=== PATIENT | female | born 1990 | race Caucasian/White ===

== ENCOUNTER 2024-06-11 16:05 | Emergency (ER) | payer OTHER, SELFPAY ==
--- NOTE | ~2024-06-11 | XR_ITS ---
EXAMINATION: XR chest 2V DATE: 06/11/2024 17:19 INDICATION: Shortness of breath. Chest tightness. TECHNIQUE: Frontal and lateral views of the chest were obtained. COMPARISON: Chest 2 views 07/12/2016 FINDINGS: There is no pneumonia, pleural effusion, or pneumothorax. The heart size is normal. IMPRESSION: 1. No acute cardiopulmonary disease. Reviewed, dictated and finalized at location A. AL PATIENT COORDINATOR
[2024-06-11 16:26] VITALS: BP 121/92; PULSE 63; RESP 15; TEMP 36.6; O2SAT 100
--- NOTE | 2024-06-11 16:34 | ED_ITS ---
HPI - URI/Sore Throat General Chief Complaint: Upper Respiratory Infection Stated Complaint: SOB Time Seen by Provider: 06/11/24 16:40 Source: patient Mode of arrival: ambulatory Limitations: no limitations History of Present Illness HPI Narrative: Summer is a 34-year-old female patient presenting to the clinic today with complaints shortness of breath, chest tightness, dizziness, chronic nausea, and reporting black stools. Shortness of breath, chest tightness and dizziness started over the past 2 days. Has had a 30-40 lb weight loss since January gynoologist is aware. Patient has been trying to lose weight. Has been taking Pepto for her nausea. She reports she seen Cardiology 3 months ago for hypertension and had a complete cardiac workup done at the workup was negative at that time. History of IBS. Patient is very anxious in the clinic today. Was supposed to see her PCP sometime over the past month however they have canceled on her twice. She has a follow-up appointment with her PCP on Friday of next week. She denies any fever, cough, chills, body aches, URI symptoms, sore throat, or abdominal pain. Related Data Home Medications Medication Instructions Recorded Confirmed acyclovir 200 mg capsule See Rx Instructions .Route .COMPLEX 08/26/19 08/26/19 amitriptyline 25 mg tablet 25 mg PO BID 08/26/19 08/26/19 etonogestrel 68 mg subdermal 1 implant subdermal ONCE 08/26/19 08/26/19 implant (Nexplanon) metoprolol tartrate 100 mg tablet 100 mg PO Q12H 08/26/19 08/26/19 buspirone 10 mg tablet mg 06/11/24 Allergies Allergy/AdvReac Type Severity Reaction Status Date / Time aripiprazole Allergy Unknown Unknown Verified 06/11/24 16:44 sertraline Allergy Unknown Unknown Verified 06/11/24 16:44 Review of Systems Review of Systems: Pertinent positives per HPI. Patient denies any fever, chills, rash, headache, visual changes, dizziness, cough, chest pain, palpitations, nausea, vomiting, diarrhea, constipation, abdominal pain, or any urinary issues. [facility] Family History Family History Father Hypertension Family history of lymphoma Mother Hypertension Sibling Patient's brother is in good health Social History Social History Smoking status: Current every day smoker Second hand tobacco smoke exposure: Yes Smoking end date: 08/04/15 Alcohol intake: current Substance use type: marijuana Comments At the time of my signature, I reviewed and agree with the nursing past medical, surgical, social, and family history. There is no relevant family history pertinent to the patient complaint. Exam Narrative: General: Well-developed, well nourished, in no apparent distress Head: Normocephalic, atraumatic Eyes: Pupils equally round and reactive to light bilaterally, EOM intact, sclera and conjunctive clear, no discharge, lids normal Ears: TMs intact and clear, ear canals clear, no drainage, grossly hearing normal. Nose: Nares patent, no discharge, no inflammation, no sinus tenderness. Mouth: Oral pharynx without lesions or masses, good dentition, MMM. Neck: Supple, trachea midline, no enlargement of anterior or posterior cervical nodes, no thyroid masses or goiter palpable. Cardio: Regular rate and rhythm, s1 and s2 normal, no murmur appreciated. Resp: Clear to auscultation bilaterally, no rhonchi, rales, wheezing or rubs Course Course Emergency Course: Portions of this record may have been created with voice recognition software. Level of Care: Express Care Visit Vital Signs Vital signs: Vital Signs Temperature 36.6 C 06/11/24 16:26 Pulse Rate 63 06/11/24 16:26 Respiratory Rate 15 06/11/24 16:26 Blood Pressure 121/92 H 06/11/24 16:26 Pulse Oximetry 100 06/11/24 16:26 Oxygen Delivery Room Air 06/11/24 16:26 Temperature 36.6 C 06/11/24 16:26 Pulse Rate 63 06/11/24 16:26 Respiratory Rate 15 06/11/24 16:26 Blood Pressure 121/92 H 06/11/24 16:26 Pulse Oximetry 100 06/11/24 16:26 Oxygen Delivery Room Air 06/11/24 16:26 Vital signs reviewed MDM - URI/Sore Throat MDM Narrative Medical decision making narrative: At the time of visit patient is resting on the exam table. Patient is anxious. Is pink warm and dry and is hemodynamically stable EKG: EKG shows sinus bradycardia with a short MO interval. Heart rate is 55 beats per minute. No ST elevation, depression, or T-wave inversion noted Labs: COVID and influenza testing was negative in the clinic today Orthostatic blood pressures: Within normal limits Diagnostics: Chest x-ray is negative for any acute cardiopulmonary process. Plan: Wells criteria 0.0 points for 1.3% PE risk. I suspect a lot of patient's symptoms may be anxiety driven. EKG, chest x-ray, and orthostatic blood pressures are reassuring in the clinic today. Patient has been taking Pepto which would give a reason for her to have darker stools. History of IBS with chronic nausea. Has weight loss but has been trying to lose weight. Dizziness occurs when her anxiety worsens. Lung sounds are clear in the clinic today. Supportive measures were discussed with the patient and they voiced understanding discharge instructions and agrees to treatment plan. Return precautions reviewed Well Criteria 0.0?points Low risk group: 1.3% chance of PE in an ED population. Another study assigned scores <=4 as ?PE Unlikely? and had a 3% incidence of PE. Differential Diagnosis Differential diagnosis: Likely upper respiratory infection, otitis media, sinusitis, viral infection, bronchitis, influenza, pharyngitis (Anxiety, PE, hyperthyroid, pneumonia, atypical chest pain, STEMI, non STEMI) and other (COVID) Imaging Data Radiologist's impression: ITS Impressions Chest X-Ray 06/11/24 17:24 IMPRESSION: 1. No acute cardiopulmonary disease. ECG Data EKG #1: Attestation: I personally reviewed and interpreted this ECG as follows: ECG completion date: 06/11/24 ECG completion time: 17:11 Prior ECG tracings: not available for review Interpretation: EKG shows sinus bradycardia with heart rate of 55 beats per minute without ST elevation, depression, or T-wave inversion. MO interval is 117 milliseconds, QRS durations 80 milliseconds, QT-QTC is 428-418 milliseconds, PRT axis 7 -2 -1 Discharge Plan Discharge Clinical Impression: Anxiety, Atypical chest pain, Shortness of breath Patient Disposition: Home, Self-Care Condition: Stable Instructions: Antibiotic Form, Chest Pain (ED), Anxiety (ED), Shortness of Breath (ED) Additional Instructions: EKG is reassuring in the clinic today Chest x-rays negative for any acute cardiopulmonary process Orthostatic blood pressures are within normal limits COVID and influenza testing was negative in the clinic today. Take your BuSpar as directed Practice relaxation techniques May take [id number] omeprazole or Pepcid for GERD symptoms Recommend follow-up with your primary care doctor on Friday as scheduled If symptoms worsen go to the emergency room immediately for further evaluation Prescriptions: No Action metoprolol tartrate 100 mg Tablet 100 mg PO Q12H acyclovir 200 mg Capsule See Rx Instructions .ROUTE .COMPLEX Rx Instructions: 200 mg orally take one tablet five times a day for five days amitriptyline 25 mg Tablet 25 mg PO BID Nexplanon 68 mg Implant 1 implant SUBDERMAL ONCE buspirone 10 mg tablet Follow-up/Referrals: Brian,JOSE Salazar [Primary Care Provider] - Time of Disposition: 17:42 Quality NIHSS Nursing Documentation ED NIHSS nursing documentation: reviewed/agree
[2024-06-11 16:41] LABS: EDCOVIDSCREEN Negative (Negative); EDINFLUASCREEN Negative (Negative); EDINFLUBSCREEN Negative (Negative)
--- NOTE | 2024-06-11 17:03 | ECG_ITS ---
Test Date: 2024-06-11 17:11:14 Measurements Intervals Lowpoint Rate: 55 P: 7 NH: 117 QRS: -2 QRSD: 80 T: -1 QT: 428 QTc: 412 Interpretive Statements SINUS BRADYCARDIA WITH SHORT NH INTERVAL LOW QRS VOLTAGE IN PRECORDIAL LEADS BORDERLINE T WAVE ABNORMALITY- ANT/INF LEADS BASELINE ARTIFACT- I, II, AVR, AVL, AVF, V4-V6 BORDERLINE ECG No previous ECG available for comparison Electronically Signed On 06-12-2024 11:45:22 SIZING MACHINE OPERATOR by Anil Buckley D.O.
[2024-06-11 17:04] VITALS: BP 118/80; PULSE 56
[2024-06-11 17:06] VITALS: BP 124/84; PULSE 63
[2024-06-11 17:08] VITALS: BP 121/80; PULSE 55
== END 2024-06-11 17:48 | disposition home or self-care (01) ==
PROVIDERS: Emergency Provider Nurse Practitioner Family; PCP Nurse Practitioner
DX: F41.9 Anxiety disorder, unspecified (principal); R07.89 Other chest pain; R06.02 Shortness of breath; Z20.822 Contact with and (suspected) exposure to COVID-19; Z87.891 Personal history of nicotine dependence
CPT/HCPCS: 71046; 87426; 87804; 93005; 99213; G0463

== ENCOUNTER 2025-06-06 15:53 | Emergency (ER) | payer OTHER, SELFPAY ==
--- OUTSIDE RECORDS SUMMARY | 2006-11-24 02:43 | XMS_ITS | Continuity of Care Document ---
Author Organization [facility] Address [address] [place] [address] [address] [place] [address] Phone Care Team Providers Care Logistics Vice President Name Role Phone Singh OD, Georgi Unavailable Unavailable Procedures Procedure Date CL Replacement - Vistakon Disp W/BW Soft Tax - Medical Advance Directives Directive Yes / No Effective Date File Name No Information Encounters Encounter Description Practice Location Reason(s) For Visit Diagnoses Date Provider Providers Copied on Encounter [facility], [address] [place] [address] [address], [place], [place], [id number], tel:[phone] [facility] No Information 3-200 7 Singh OD Georgi. [address] , [address], [place], [address], [place]. tel:[phone] Family History Family Member Type Diagnosis Age At Onset No Information Payers Payer name Insurance type Covered democrat ID Authoriza tion(s) No Information Social History Type Description Quantity Date Captured Comments Sex Female Smoking Status No Information Chief Complaint And Reason For Visit No Information Reason For Referral Reason For Referral No Information History Of Present Illness Encounter Date Complaint History Of Prese nt Illness No Information Functional Status Date Functional Assessmen t No Information Instructions Date Instruction Additional Infor mation No Information Assessments Type Assessment Date No Information Patient Care Teams Name Effective Dates (start - stop) Status Members No Information
--- OUTSIDE RECORDS SUMMARY | 2006-11-24 02:43 | XMS_ITS | Continuity of Care Document ---
Author Organization [facility] Address [address] [place] [address] [address] [place] [address] Phone Care Team Providers Care Physicist Cryogenics Name Role Phone Singh OD, Georgi Unavailable Unavailable Procedures Procedure Date CL Replacement - Vistakon Disp W/BW Soft Tax - Medical Advance Directives Directive Yes / No Effective Date File Name No Information Encounters Encounter Description Practice Location Reason(s) For Visit Diagnoses Date Provider Providers Copied on Encounter Formerly [facility], [address] [place] [address] [address], [place], [place], [id number], tel:[phone] [facility] No Information 3-200 7 Sinhg OD Georgi. [address] , [address], [place], [address], [place]. tel:[phone] Family History Family Member Type Diagnosis Age At Onset No Information Payers Payer name Insurance type Covered libertarian ID Authoriza tion(s) No Information Social History [...]
--- OUTSIDE RECORDS SUMMARY | 2025-06-06 16:01 | XMS_ITS | Encounter Summary ---
Author Organization [facility] Address [address] [place] [address] Care Team Providers Care R Programmer Name Role Phone Kaila Hopper Primary Care Provider [phone] Reason for Visit * Reason Onset Date Comments MEDICATION REFILL 06/18/2022 Encounter Details Date Type Department Care Team (Late st Contact Info) Description 06/18/[address], [place] [phone] Kaila Hopper APRN-CNP [address] [place] [phone] MEDICATION REFILL Social History Tobacco Use Types Packs/Day Years Used Date Smoking Tobacco: Light Smoker Cigarettes Smokeless Tobacco: Never Comments:trying to stop Alcohol Use Standard Drinks/Week Comments Yes 0 (1 standard drink = 0.6 oz pur e alcohol) rare PHQ-2 Answer Date Recorded PHQ2 TOTAL SCORE 0 05/01/2021 Comments No Sex and Gender Information Value Date Recorded Sex Assigned at Not on file Legal Sex Female 1:45 PM CDT Gender Identity Not on file Sexual Orientation Not on file documented as of this encounter Plan of Treatment Not on file documented as of this encounter Visit Diagnoses Diagnosis Medication refill Issue of repeat prescriptions Insomnia, unspecified type Dry mouth Disturbance of salivary secretion Anxiety Anxiety state, unspecified documented in this encounter Care Teams R Programmer Relationship Specialty Start Date End Date Kaila Hopper APRN-CNP PCP - General 05/29/18 documented as of this encounter
--- OUTSIDE RECORDS SUMMARY | 2025-06-06 16:01 | XMS_ITS | Encounter Summary ---
Author Organization [facility] Address [address] [place] [address] Care Team Providers Care Weight Loss Consultant Name Role Phone Kaila Hopper Primary Care Provider [phone] Reason for Visit * Reason Onset Date Comments MEDICATION REFILL 02/19/2021 Encounter Details Date Type Department Care Team (Late st Contact Info) Description 02/19/[address], [place] [phone] Kaila Hopper APRN-CNP [address] [place] [phone] MEDICATION REFILL Social History Tobacco Use Types Packs/Day Years Used Date Smoking Tobacco: Light Smoker Cigarettes Smokeless Tobacco: Never Comments:trying to stop Alcohol Use Standard Drinks/Week Comments Yes 0 (1 standard drink = 0.6 oz pur e alcohol) rare Comments No Sex and Gender Information Value Date Recorded Sex Assigned at Not on file Legal Sex Female 1:45 PM CDT Gender Identity Not on file Sexual Orientation Not on file documented as of this encounter Miscellaneous Notes * Telephone Encounter - Kimberly Ocampo - 02/19/2021 1:51 PM CDT Staci Rich Requested Prescriptions Pending Prescriptions Disp Refills ??? amitriptyline (ELAVIL) 75 MG tablet 90 tablet 1 Sig: Take 1 (one) tablet by mouth at bedtime Reasons: Irritable Bowel Syndrome ??? busPIRone (BUSPAR) 10 MG tablet 60 tablet 3 Sig: Take 2 (two) tablets by mouth 2 times daily Reasons: Anxiety Disorder Allergies Allergen Reactions ??? Zoloft [Sertraline] Other Makes pt sleepy Last Refill:07/10/2020 Qty Dispense:90,60 # of Refills:1,3 Last OV:07/10/2020 Next OV:none documented in this encounter Plan of Treatment Not on file documented as of this encounter Visit Diagnoses Diagnosis Insomnia, unspecified type Anxiety Anxiety state, unspecified documented in this encounter Additional Health Concerns Infection Onset Date Last Indicated Resolved Time COVID-19 Under Investigation 12/13/2021 12/13/2021 12/14/2021 5:47 AM CDT documented as of this encounter Care Teams Weight Loss Consultant Relationship Specialty Start Date End Date Kaila Hopper APRN-CNP PCP - General 05/29/18 documented as of this encounter
--- OUTSIDE RECORDS SUMMARY | 2025-06-06 16:01 | XMS_ITS | Encounter Summary ---
Author Organization [facility] Address [address] [address] Care Team Providers Care Genetic Engineer Name Role Phone RuchiKaila BLAINE Primary Care Provider [phone] Encounter Details Date Type Department Care Team (Late st Contact Info) Description 05/28/2018 Lab Requisition [facility] [address] [place] [phone] Unlisted, Ordering Provider, Social History Tobacco Use Types Packs/Day Years Used Date Smoking Tobacco: Never Assessed Comments Unknown Sex and Gender Information Value Date Recorded Sex Assigned at Not on file Legal Sex Female 1:45 PM CDT Gender Identity Not on file Sexual Orientation Not on file documented as of this encounter Plan of Treatment Not on file documented as of this encounter Procedures Procedure Name Priority Date/Time Associated Diagnosis Comments GLUCOSE VITALITY Routine 05/29/2018 11:3 8 AM CDT HEMOGLOBIN A1C Routine 05/29/2018 11:38 AM CDT LIPID PROFILE Routine 05/29/2018 11:38 AM CDT documented in this encounter Results * HEMOGLOBIN A1C (05/29/2018 11:38 AM CDT) Hemoglobin A1c 4.8 4.4 - 6.3 % 05/29/2018 3:21 PM CDT [facility] Estimated Average Glucose 91 mg/dL 05/29/2018 3:21 PM CDT [facility] Comment: HbA1c Interpretation: Treatment target values recommended by ADA and other clinical organizations should be used to evaluate metabolic control in patients. Treatment Target Values: Normal : < 5.7% Pre-diabetes: 5.7-6.4% Diabetes: Equal to or greater than 6.5% Reference: [place] Diabetes Association Standards of Care in Diabetes -2014 In patients 70 years and older consider HbA1c target range of 7.0-7.5% Reference: Diabetes Mellitus in Older People: Position Statement on behalf of the International Association of Gerontology and Geriatrics (IAGG), the Diabetes Working Libertarian for Older People (EDWPOP), and the International Task Force of Experts in Diabetes. Sean Bonilla et al. J [employer] Association. 2012 Test results diagnostic of diabetes should be repeated for confirmation. The Tosoh G8 assay for the measurement of HbA1c is a National Glycohemoglobin Standardization Program (NGSP)certified method. Results for patients with HbE disease should be interpreted with caution as this hemoglobinopathy has been shown to interfere with the Tosoh G8 assay. Blood BLOOD SPECIMEN / Unknown 05/29/2018 11:38 AM CDT 05/29/2018 1:50 PM CDT us Ordering Provider Unlisted MD LAB - CHEMISTRY OR DERABLES Final Result [address] [phone] * LIPID PROFILE (05/29/2018 11:38 AM CDT) Cholesterol Total 152 <200 mg/dL 05/29/2018 2:33 PM CDT [facility] HDL 59 >40 mg/dL 05/29/2018 2:33 PM T [facility] Comment: ATP III Classification of HDL Cholesterol: <40 mg/dL: Considered a major risk factor. >60 mg/dL: Considered a negative risk factor. LDL Calculated 76 <100 mg/dL 05/29/2018 2:33 PM T [facility] Comment: ATP III Classification of LDL Cholesterol: <100 mg/dL: Optimal 100 - 129 mg/dL: Near Optimal/Above Optimal 130 - 159 mg/dL: Borderline High 160 - 189 mg/dL: High >190 mg/dL: Very High Triglycerides 85 <150 mg/dL 05/29/2018 2:33 PM CDT [facility] Comment: ATP III Classification of Triglycerides: <150 mg/dL: Normal 150 - 199 mg/dL: Borderline High 200 - 400 mg/dL: High >500 mg/dL: Very High Blood BLOOD SPECIMEN / Unknown 05/29/2018 11:38 AM CDT 05/29/2018 1:50 PM CDT us Ordering Provider Unlisted MD LAB - CHEMISTRY OR DERABLES Final Result [address] [phone] * GLUCOSE VITALITY (05/29/2018 11:38 AM CDT) Glucose 88 70 - 115 mg/dL 05/29/2018 2:20 PM CDT [facility] Blood BLOOD SPECIMEN / Unknown 05/29/2018 11:38 AM CDT 05/29/2018 1:50 PM CDT us Ordering Provider Unlisted MD LAB - CHEMISTRY OR DERABLES Final Result Performing Organization Address City/[facility] Co de Phone Number [address] [phone] documented in this encounter Visit Diagnoses Not on filedocumented in this encounter Additional Health Concerns Infection Onset Date Last Indicated Resolved Time COVID-19 Under Investigation 12/13/2021 12/13/2021 12/14/2021 5:47 AM CDT documented as of this encounter Care Teams Genetic Engineer Relationship Specialty Start Date End Date Kaila Hopper APRN-CNP PCP - General 05/29/18 documented as of this encounter
--- OUTSIDE RECORDS SUMMARY | 2025-06-06 16:01 | XMS_ITS | Clinical Summary ---
Author Organization [facility] Address [address] [place] [address] Care Team Providers Care Shirt Ironer Supervisor Name Role Phone Vivi Torres NP Primary Care Provider [phone] [phone] Allergies Active Allergy Reactions Criticality Noted Date Comments Sertraline Other (see comment) 05/29/2018 Makes pt sleepy Medications ondansetron (ZOFRAN) 4 MG tabletIndication s:Nausea Take 1 tablet (4 mg total) by mouth every 8 (eight) hours as needed. 20 tablet 4 Active Additional Information Patient not taking.Reported on 02/21/2025 dicyclomine (BENTYL) 20 MG tabletIndication s:Irritable bowel syndrome with diarrhea TAKE 1 TABLET(20 MG) BY MOUTH EVERY 6 HOURS 120 tablet 5 Active Additional Information Patient not taking.Reported on 02/21/2025 pantoprazole EC (PROTONIX) 20 MG tabletIndication s:Decreased appetite,Nausea TAKE 1 TABLET(20 MG) BY MOUTH DAILY 90 tablet 1 5 Active Additional Information Patient not taking.Reported on 02/21/2025 amitriptyline (ELAVIL) 75 MG tabletIndication s:Irritable bowel syndrome with diarrhea TAKE 1 TABLET(75 MG) BY MOUTH EVERY NIGHT AT BEDTIME 90 tablet 1 5 Active vitamin D2, ergocalciferol, (DRISDOL) 1.25 mg capsule Take 1 capsule (1.25 mg total) by mouth once a week. 5 Active Etonogestrel (NEXPLANON SC) Activ e busPIRone (BUSPAR) 10 MG tabletIndication s:Anxiety Take 2 tablets (20 mg total) by mouth 2 (two) times daily. 90 tablet 3 5 Active metoprolol tartrate (LOPRESSOR) 100 MG tabletIndication s:Anxiety,Hypert ension, unspecified type Take 1 tablet (100 mg total) by mouth 2 (two) times daily. 180 tablet 3 5 Active Active Problems Problem Noted Date Diagnosed Date Overweight (BMI 25.0-29.9) 02/21/2025 Assessment & Plan (02/21/2025 1:07 PM CDT): Encourage diet and lifestyle changes to assist with weight loss. Nicotine dependence 02/21/2025 Overview (02/21/2025): Daily smoker. Not ready to quit. Denies any chest pain, shortness of breath or hemoptysis Assessment & Plan (02/21/2025 1:40 PM CDT): Encourage smoking cessation. Pt is not ready to quit at this time. Irritable bowel syndrome with diarrhea 3 Overview (02/21/2025): Chronic condition. Doing well with amitriptyline 25 mg at bedtime and with dicyclomine 20 mg every 6 hours as needed. She feels that her symptoms are triggered more from anxiety. Assessment & Plan (02/21/2025 1:07 PM CDT): Resume medications as directed. Encourage following a low FODMAP diet which can help eliminate gas, bloating and pain. Recommend getting soluble fiber in your diet which is found in oat bran, barley, and and avoid insoluble fiber. Women should try to eat at least 21 to 25 grams of fiber a day, while men should aim for 30 to 38 grams a day Probiotics may also be considered for 4 weeks. MiraLAX is safe to take for constipation, Colace is another stool softer you may take and can take daily. A prescription for an antispasmodic can be considered in patients experiencing pain in bloating. Peppermint oil has an antispasmodic property and is recommended by the [employer] for the relief of IBS symptoms it is available as drops or enteric-coated sustained-release tablet. Assessment & Plan (02/09/2024 1:43 PM CDT): Discussed that she has quite low fiber intake in her diet. Made some recommendations for increasing fiber through food and not supplementation which should help her microbiome. Offered ova and parasite testing and she is agreeable to deferring this until after she has attempted dietary changes. Prescribed Bentyl to see if this helps with the cramping she also describes. Discussed red flag symptoms that would warrant additional management and evaluation. Generalized anxiety disorder 06/12/2018 Overview (02/21/2025): Chronic condition. Doing well with buspirone 10 mg twice a day. Denies SI/HI. She has some increase family/work stressors but is doing well overall. She has been to therapy in the past but not recently. She does not feel she needs to go back at this time. Assessment & Plan (02/21/2025 1:09 PM CDT): Chronic condition. Controlled. No changes needed at this time. Palpitations 06/04/2018 Overview (02/21/2025): Stable with use of metoprolol 100 mg twice a day and is also on buspirone for anxiety. Assessment & Plan (02/21/2025 1:08 PM CDT): Chronic condition. Controlled. No changes needed at this time Obsessive compulsive disorder 08/22/2010 Resolved Problems Problem Noted Date Diagnosed Date Resolved Date Anxiety 08/23/2022 02/21/2025 Obesity (BMI 35.0-39.9 without comorbidity) 08/23/2022 02/21/2025 Hyperglycemia 07/02/2018 12/31/2023 Leukocytosis 07/02/2018 02/21/2025 Essential hypertension 06/04/201812/30 Encounters Date Type Department Care Team Description 03/24/2025 Orders Only [facility] Family Medicine - [place] [address] [place] [address] Tonya Umanzor MA from Last 3 Months Immunizations Immunization Administration Dates Next Due Influenza (Generic) 05/01/2021,05/04/2019 Influenza Adult (Generic) 05/09/2020,05/20/2017 Pneumococcal (Pneumovax 23) 10/04/2019 Tdap (Generic) 10/04/2019 Family History Medical History Relation Comments Cancer Father non hodgkins Depression Father Heart Disease Father Hypertension Father Heart Disease Maternal Grandfather Depression Mother Heart Disease Mother Heart Disease Paternal Grandfather Relation Status Comments Father Alive Maternal Grandfather Mother Alive Paternal Grandfather Social History Tobacco Use Types Packs/Day Years Used Date Smoking Tobacco: Every Day Cigarettes 0.3 3.3 Passive Smoke Exposure: Never Smokeless Tobacco: Never Tobacco Cessation:Ready to Q uit: No; Counseling Given: Yes Comments:PROVIDER TO GRAPHIC PRODUCTION ARTIST Alcohol Use Standard Drinks/Week Comments Yes 6 (1 standard drink = 0.6 oz pur e alcohol) 3 times weekly, twisted tea PHQ-2 Answer Date Recorded Patient Health Questionnaire-2 Score 0 02/21/2025 Comments No Sex and Gender Information Value Date Recorded Sex Assigned at Female 02/21/2025 12:58 PM CDT Legal Sex Female 5:27 PM CDT Gender Identity Not on file Sexual Orientation Not on file Last Filed Vital Signs Vital Sign Reading Time Taken Comments Blood Pressure 92/60 02/21/2025 1:02 PM CDT Pulse 80 02/21/2025 1:02 PM CDT Temperature 36.6 C (97.8 F) 02/21/2025 1:02 PM CDT Respiratory Rate 16 02/21/2025 1:02 PM CDT Oxygen Saturation 100% 02/21/2025 1:02 PM CDT Inhaled Oxygen Concentration - - Weight 83 kg (183 lb) 02/21/2025 1:02 PM CDT Height 170.2 cm (5' 7) 02/21/2025 1:02 PM CDT Body Mass Index 28.66 02/21/2025 1:02 PM CDT Plan of Treatment Upcoming Encounters Date Type Department Care Team (Late st Contact Info) Description 06/07/2025 9:20 AM SALVAGE MACHINE OPERATOR Office Visit [facility] - [place] [address] [place] [address] Vivi Torres NP [address] [place] [address] Health Maintenance Due Date Last Done Comments Cervical Cancer Screening Pap Smear (Age 30 to 64) Every 3 Years 1989 Hepatitis B Vaccines (1 of 3 - 19+ 3-dose series) 02/08/2008 HPV Vaccines (1 - 3-dose SCDM series) 02/08/2016 Cervical Cancer Screening Pap with HPV Testing (Age 30 to 64) Every 5 Years 2019 COVID-19 Vaccine (3 - 2024- season) 2025 10/21/2020, 09/23/2020 Influenza Adult (#1) 2025 05/01/2021, 05/09/2020, 05/04/2019, Additional history exists Cervical Cancer Screening with HPV 09/17/2025 Postponed from 2019 (Going to Outside Clinic) Annual Physical 02/21/2026 02/21/2025, 12/03, 08/23/2022 Pneumococcal Vaccine: Pediatrics (0 to 5 Years) and At-Risk Patients (6 to 49 Years) (2 of 2 - PCV) 02/21/2026 10/04/2019 Postponed from 10/03/2020 (Patient Refused) DTaP, Tdap and Td Vaccines (2 - Td or Tdap) 10/03/2029 10/04/2019 Hepatitis C Completed 05/01/2021 PHQ-2 (Physician [place]) Completed 02/21/2025 Hepatitis A Vaccines Aged Out No long er eligible based on patient's age to complete this topic Meningococcal B Vaccine Aged Out No l onger eligible based on patient's age to complete this topic Meningococcal Vaccine Aged Out No june chris eligible based on patient's age to complete this topic RSV Immunizations Under 20 Months Aged Out No longer eligible based on patient's age to complete this topic Insurance [facility] Care Teams Shirt Ironer Supervisor Relationship Specialty Start Date End Date Vivi Torres NP [address] [place] [address] PCP - General NURSE PRACTITIONER 08/09/22
--- OUTSIDE RECORDS SUMMARY | 2025-06-06 16:01 | XMS_ITS | Encounter Summary ---
Author Organization [facility] Health Address [address] [place] [address] Care Team Providers Care Abstracter Name Role Phone Kaila Hopper Primary Care Provider [phone] [phone] Reason for Visit * Reason Onset Date Comments MEDICATION REFILL 02/22/2021 Encounter Details Date Type Department Care Team (Late st Contact Info) Description 02/22/2021 Refill [facility] Medicine [address] [facility] [address] [place] [address] Tha Abbott MD [address] [phone] MEDICATION REFILL Social History Tobacco Use Types [...] Diagnosis Medication refill Issue of repeat prescriptions documented in this encounter Additional Health Concerns Infection Onset Date Last Indicated Resolved Time COVID-19 Under Investigation 12/13/2021 12/13/2021 12/14/2021 5:47 AM CDT documented as of this encounter Care Teams Abstracter Relationship Specialty Start Date End Date Kaila Hopper APRN-CNP PCP - General 05/29/18 documented as of this encounter
--- OUTSIDE RECORDS SUMMARY | 2025-06-06 16:01 | XMS_ITS | Encounter Summary ---
Author Organization [facility] Health Address [address] [address] Care Team Providers Care Stock Preparation Operator Name Role Phone Kaila Hopper Primary Care Provider [phone] [phone] Reason for Visit * Reason Onset Date Comments MEDICATION REFILL 06/24/2022 Encounter Details Date Type Department Care Team (Late st Contact Info) Description 06/24/[address], [place] [phone] Kaila Hopper APRN-CNP [address] [place] [phone] MEDICATION REFILL Social History Tobacco Use [...] encounter Miscellaneous Notes * Telephone Encounter - Kaila Hopper APRN-CNP - 06/24/2022 3:33 PM PROGRAM MANAGEMENT PROFESSIONAL I will provide 1 refill please call pt to schedule an appointment before next refill RAM MANAGEMENT PROFESSIONAL * Telephone Encounter - VincentKimberly solomon - 06/24/2022 9:38 AM CST Summer Rich Requested Prescriptions Pending Prescriptions Disp Refills ??? metoprolol tartrate IR (Lopressor) 100 MG tablet 90 tablet 4 Sig: Take 1 (one) tablet by mouth 3 times daily ??? amitriptyline (Elavil) 75 MG tablet 90 tablet 1 Sig: Take 1 (one) tablet by mouth at bedtime Reasons: Irritable Bowel Syndrome ??? Artificial Saliva (Biotene Dry Mouth Moisturizing) SOLN 44.3 mL 3 Sig: Swish and spit 10 mL 3 times daily as needed ??? busPIRone (Buspar) 10 MG tablet 180 tablet 0 Sig: Take 2 (two) tablets by mouth 2 times daily Reasons: Anxiety Disorder Allergies Allergen Reactions ??? Zoloft [Sertraline] Other Makes pt sleepy Last Refill:10/17/2021 Qty Dispense:90,90,44.3,180 # of Refills:4,1,3,0 Last OV:05/01/2021 Next OV: none RAM MANAGEMENT PROFESSIONAL documented in this encounter Plan of Treatment Not on file documented as of this encounter Visit Diagnoses Diagnosis Medication refill Issue of repeat prescriptions Insomnia, unspecified type Dry mouth Disturbance of salivary secretion Anxiety Anxiety state, unspecified documented in this encounter Care Teams Stock Preparation Operator Relationship Specialty Start Date End Date Kaila Hopper APRN-CNP PCP - General 05/29/18 documented as of this encounter
--- OUTSIDE RECORDS SUMMARY | 2025-06-06 16:01 | XMS_ITS | Encounter Summary ---
Author Organization [facility] Health Address [address] [place] [address] Care Team Providers Care Veterinary Hospital Attendant Name Role Phone Kaila Hopper Primary Care Provider [phone] [phone] Reason for Visit * Reason Onset Date Comments MEDICATION REFILL 11/05/2020 Encounter Details Date Type Department Care Team (Late st Contact Info) Description 11/05/2020 Refill [facility] Medicine [address] [facility] [address] [place] [address] Tha Abbott MD [address] [phone] MEDICATION REFILL Social History Tobacco Use Types [...] as of this encounter Visit Diagnoses Diagnosis Dry mouth Disturbance of salivary secretion documented in this encounter Additional Health Concerns Infection Onset Date Last Indicated Resolved Time COVID-19 Under Investigation 12/13/2021 12/13/2021 12/14/2021 5:47 AM CDT documented as of this encounter Care Teams Veterinary Hospital Attendant Relationship Specialty Start Date End Date Kaila Hopper APRN-CNP PCP - General 05/29/18 documented as of this encounter
--- OUTSIDE RECORDS SUMMARY | 2025-06-06 16:01 | XMS_ITS | Clinical Summary ---
Author Organization [facility] Address [address] [place] [address] Care Team Providers Care Foxing Closer Name Role Phone Kaila Hopper Primary Care Provider [phone] [phone] [facility],non-owned Affiliates and Associated Physician Practices is amultiple site organization consisting of ambulatory clinics and hospital sitesin [place], [place], [place] and [place]. This disclosure is being madepursuant to the Care Everywhere program and may not contain all information available regarding this patient. Last updated [address].[facility] Allergies Active Allergy Reactions Criticality Noted Date Comments Sertraline Other 05/29/2018 Makes pt sleepy Medications * Be aware that medications may not be up to date on this document. Alwaysverify current medications with the patient. etonogestrel (NEXPLANON) 68 MG implant 68 (sixty eight) mg by Subdermal route as directed 9 Active Blood Pressure Monitoring (BLOOD PRESSURE KIT) BRYANNA Use 1 Each as directed 1 device 0 Active nicotine (NICODERM CQ) 14 MG/24HR patch Apply 1 (one) patch to skin once daily 30 patch 6 1 Active metoprolol tartrate IR (Lopressor) 100 MG tabletIndicatio ns:Medication refill Take 1 (one) tablet by mouth 3 times daily 90 tablet 4 2 Active amitriptyline (Elavil) 75 MG tabletIndicatio ns:Irritable Bowel Syndrome Take 1 (one) tablet by mouth at bedtime Reasons: Irritable Bowel Syndrome 90 tablet 1 2 Active Artificial Saliva (Biotene Dry Mouth Moisturizing) SOLNIndications :Dry mouth Swish and spit 10 mL 3 times daily as needed 44.3 mL 3 2 Active busPIRone (Buspar) 10 MG tablet 4 Active Active Problems Problem Noted Date Diagnosed Date Hyperglycemia 07/02/2018 Leukocytosis 07/02/2018 Generalized anxiety disorder 06/12/2018 Essential hypertension 06/04/2018 Palpitations 06/04/2018 Anxiety 06/04/2018 Major depressive disorder, r ecurrent, severe without psychotic features 10/25/2015 Tobacco use 10/24/2015 Immunizations Immunization Administration Dates Next Due INFLUENZA VACCINE 05/04/2019 INFLUENZA VACCINE, CELL CULT URE, QUADR. (FLUCELVAX QUADRIVALENT; 6MO+) (CCIIV4) 05/09/2020 PNEUMOCOCCAL PPSV23 10/04/2019 TDAP (7yrs+) 10/04/2019 iNFLUENZA VACCINE, RECOM-BRADY, QUADR. (FLUBLOCK QUADRIVALENT; 18Y+) (RIV4) 05/01/2021 Family History Medical History Relation Name Comments Other - Genitourinary Brother TWIN kidney problems and mental health problems Cancer - Other Father NHL Depression Father CAD (Coronary Artery Disease) Maternal Grandfather CVA Maternal Grandmother Depression Mother CAD (Coronary Artery Disease) Paternal Grandfather Asthma Neg Hx Cancer - Breast Neg Hx Cancer - Skin, Melanoma Neg Hx Cancer - Skin, Non Melanoma Neg Hx Eczema Neg Hx Hemophilia Neg Hx Psoriasis Neg Hx Relation Name Status Comments Brother TWIN Alive Father Alive Maternal Grandfather Maternal Grandmother Mother Alive Other Alive Paternal Grandfather Paternal Grandmother Social History Tobacco Use Types Packs/Day Years Used Date Smoking Tobacco: Light Smoker Cigarettes Smokeless Tobacco: Never Tobacco Cessation:Ready to Q uit: Not Asked; Counseling Given: Not Answered Comments:trying to stop Alcohol Use Standard Drinks/Week [...] Sign Reading Time Taken Comments Blood Pressure 120/84 03/02/2024 8:29 AM CDT Pulse 88 12/02/2023 8:00 AM CDT Temperature 35.9 C (96.7 F) 07/10/2020 8:28 AM CHILD DAY CARE PROVIDER Respiratory Rate - - Oxygen Saturation 98% 12/02/2023 8:00 AM CDT Inhaled Oxygen Concentration - - Weight 93.4 kg (206 lb) 03/02/2024 8:29 AM CDT Height 167.6 cm (5' 6) 03/02/2024 8:29 AM CDT Body Mass Index 33.25 03/02/2024 8:29 AM CDT Plan of Treatment Health Maintenance Due Date Last Done Comments HEPATITIS B VACCINE (1 of 3 - 19+ 3-dose series) 02/08/2008 HPV VACCINE (1 - 3-dose SCDM series) 02/08/2016 PNEUMOCOCCAL VACCINE (2 of 2 - PCV) 10/03/2020 10/04/2019 PAP SMEAR 09/15/2022 09/15/2019 (Done Outside Per Patient) DEPRESSION SCREENING 08/04/2024 COVID-19 VACCINE (1 - season) 2025 INFLUENZA VACCINE (#1) 2025 , 05/09/2020, 05/04/2019, Additional history exists DTAP/TDAP/TD VACCINES (2 - Td or Tdap) 10/03/2029 10/04/2019 ZOSTER VACCINE (1 of 2) 2039 HEPATITIS C SCREENING Completed 05/01/2021 HIV SCREENING Completed 05/01/2021 HIB VACCINE Aged Out No longer eligi ble based on patient's age to complete this topic MENINGOCOCCAL (Group B) VACCINE SHARED DECISION-MAKING Aged Out No longer eligible based on patient's age to complete this topic MENINGOCOCCAL GROUPS A/C/Y/W VACCINE Aged Out No longer eligible based on patient's age to complete this topic Procedures Procedure Name Priority Date/Time Associated Diagnosis Comments HEPATITIS C ANTIBODY W RFLX PCR 05/01/2021 3:09 PM CDT Screen for STD (sexually transmitted disease) HIV-1 HIV-2 ANTIBODY + HIV P24 AG PANEL Routine 05/01/2021 3:09 PM CDT Screen for STD (sexually transmitted disease) from Last 3 Months or Most Recently Relevant to Health Maintenance Results * HEPATITIS C ANTIBODY W RFLX PCR (05/01/2021 3:09 PM CDT) Pathologist [facility] Hepatitis C Antibody <0.1 0.0 - 0.9 s/co ratio [facility] INSURANCE BILL Comment:FASTING 05/01/2021 3:09 PM CDT 05/01/2021 Narrative Resulting Agency Comment Lab Testing performed at: [address] [phone] [facility] PATIENT ADMITTING REPRESENTATIVE-GRAIN MILL WORKER LAB - CHEMISTRY ORDERABLE S Final Result [facility] INSURANCE BILL [address] [place] [address] * HIV-1 HIV-2 ANTIBODY + HIV P24 AG PANEL (05/01/2021 3:09 PM CDT) [facility] HIV Screen 4th Generation w Reflex Non Reactive Non Reactive [facility] INSURANCE BILL Comment:FASTING Blood BLOOD SPECIMEN / Unknown 05/01/2021 3:09 PM CDT 05/01/2021 Narrative Resulting Agency Comment Lab Testing performed at: [address] [phone] Kaila Hopper PATIENT ADMITTING REPRESENTATIVE-GRAIN MILL WORKER LAB - CHEMISTRY ORDERABLE S Final Result [facility] INSURANCE BILL [address] [place] [address] from Last 3 Months or Most Recently Relevant to Health Maintenance Insurance [facility] Care Teams Foxing Closer Relationship Specialty Start Date End Date Kaila Hopper APRN-LOAN PCP - General 05/29/18
--- OUTSIDE RECORDS SUMMARY | 2025-06-06 16:01 | XMS_ITS | Encounter Summary ---
Author Organization [facility] Health Address [address] [place] [address] Care Team Providers Care Insulation Machine Operator Name Role Phone Kaila Hopper Primary Care Provider [phone] [phone] Reason for Visit * Reason Onset Date Comments MEDICATION REFILL 01/17/2022 Encounter Details Date Type Department Care Team (Late st Contact Info) Description 01/17/[address], [place] [phone] Kaila Hopper APRN-CNP [address] [place] [phone] MEDICATION REFILL Social History Tobacco Use Types [...] Diagnosis Medication refill Issue of repeat prescriptions Anxiety Anxiety state, unspecified Insomnia, unspecified type Dry mouth Disturbance of salivary secretion documented in this encounter Care Teams Insulation Machine Operator Relationship Specialty Start Date End Date Kaila Hopper APRN-CNP PCP - General 05/29/18 documented as of this encounter
--- OUTSIDE RECORDS SUMMARY | 2025-06-06 16:01 | XMS_ITS | Encounter Summary ---
Author Organization [facility] Health Address [address] [address] Care Team Providers Care Graphics Intern Name Role Phone Ruchi Kaila VALLADARES Primary Care Provider [phone] [phone] Encounter Details Date Type Department Care Team (Late st Contact Info) Description 12/13/2021 Lab Requisition [facility] [address] [place] [phone] Cole Chavez APRN-CNP [address] [address] Social History Tobacco Use Types Packs/Day Years [...] Procedure Name Priority Date/Time Associated Diagnosis Comments SARS-COV-2 (COVID-19) IN HOUSE Routine 12/13/2021 3:30 PM CDT documented in this encounter Results * SARS-COV-2 (COVID-19) INTERNAL (12/13/2021 3:30 PM CDT) COVID-19 PCR Not detected Not detected 12/14/2021 5:47 AM CDT [facility] Microbiology SPECIMEN FROM NASOPHARYNGEAL STRUCTURE / Unknown Collection / Unknown 12/13/2021 3:30 PM CDT 12/13/2021 6:22 PM CDT Narrative [facility] - 12/14/2021 5:47 AM CDT This nucleic acid amplification assay performance was validated by [facility]. This test has been authorized by the Food and Drug administration (FDA)under an Emergency Use Authorization (EUA). This test has been validated in accordance with the FDA's guidance document Policy for Diagnostic Testing in Laboratories Certified to perform High Complexity Testing under CLIA prior to Emergency Use Authorization for Coronavirus Disease-2019 during the Public Health Emergency issued on October 02, 2019. FDA independent review of this validation is pending. This test is only authorized for the duration of time the declaration that circumstances exist justifying the authorization of emergency use of in vitro diagnostic tests for detection of SARS-CoV-2 virus and/or diagnosis of COVID-19 infection under section 564(b)(1) of the Act, 21 U.S.C 360bbb-3 (b)(1), unless the authorization is terminated or revoked sooner. Fact Sheets for this EUA assay are available upon request. [facility] - MICROBIOLOGY BRITTANY RAMON Final Result [facility] [address] [place], [address] [phone] documented in this encounter Visit Diagnoses Not on filedocumented in this encounter Additional Health Concerns Infection Onset Date Last Indicated Resolved Time COVID-19 Under Investigation 12/13/2021 12/13/2021 12/14/2021 5:47 AM CDT documented as of this encounter Care Teams Graphics Intern Relationship Specialty Start Date End Date Kaila Hopper APRN-CNP PCP - General 05/29/18 documented as of this encounter
--- OUTSIDE RECORDS SUMMARY | 2025-06-06 16:01 | XMS_ITS | Encounter Summary ---
Author Organization [facility] Health Address [address] [address] Care Team Providers Care Supervisor Grove Name Role Phone Kaila Hopper Primary Care Provider [phone] Reason for Visit * Reason Onset Date Comments MEDICATION REFILL 02/18/2021 Encounter Details Date Type Department Care Team (Late st Contact Info) Description 02/18/2021 Refill [facility] Medicine [address] [facility] [address] [place] [address] Tha Abbott MD [address] [phone] MEDICATION REFILL Social History Tobacco Use Types [...] Diagnosis Medication refill Issue of repeat prescriptions Dry mouth Disturbance of salivary secretion documented in this encounter Additional Health Concerns Infection Onset Date Last Indicated Resolved Time COVID-19 Under Investigation 12/13/2021 12/13/2021 12/14/2021 5:47 AM CDT documented as of this encounter Care Teams Supervisor Grove Relationship Specialty Start Date End Date Kaila Hopper APRN-CNP PCP - General 05/29/18 documented as of this encounter
--- OUTSIDE RECORDS SUMMARY | 2025-06-06 16:01 | XMS_ITS | Encounter Summary ---
Author Organization [facility] Health Address [address] [facility] [place] [address] Care Team Providers Care Vending Route Servicer Name Role Phone Kaila Hopper Primary Care Provider [phone] Reason for Visit * Reason Onset Date Comments MEDICATION REFILL 02/21/2021 Encounter Details Date Type Department Care Team (Late st Contact Info) Description 02/21/2021 Refill [facility] Medicine [address] [facility] [address] [place] [address] Tha Abbott MD [address] [phone] MEDICATION REFILL Social History Tobacco Use Types [...] documented as of this encounter Care Teams Vending Route Servicer Relationship Specialty Start Date End Date Kaila Hopper APRN-CNP PCP - General 05/29/18 documented as of this encounter
--- OUTSIDE RECORDS SUMMARY | 2025-06-06 16:02 | XMS_ITS | Encounter Summary ---
Author Organization [facility] Health Address [address] [facility] [place] [address] Care Team Providers Care Brake Liner Name Role Phone Kaila Hopper Primary Care Provider [phone] Reason for Visit * Reason Onset Date Comments MEDICATION REFILL 09/30/2019 MEDICATION REFILL 03/20/2020 Encounter Details Date Type Department Care Team (Late st Contact Info) Description 09/30/[address] [facility] [address] [address] Kaila Hopper APRN-CNP [address] [phone] MEDICATION REFILL; MEDICATION REFILL Social History Tobacco Use Types [...] encounter Miscellaneous Notes * Telephone Encounter - Delia Mae - 09/30/2019 1:52 PM CST Staci Rich or the patients pharmacy called/LVM/sent a fax requesting a refill on the medication(s) listed below: Requested Prescriptions Pending Prescriptions Disp Refills ??? amitriptyline (ELAVIL) 25 MG tablet 30 tablet 3 Sig: TAKE 1 AND 1/2 TABLET BY MOUTH EVERY NIGHT AT BEDTIME Allergies Allergen Reactions ??? Zoloft [Sertraline] Other Makes pt sleepy Last prescribed on 08/23/2019 qty of 30 tabs with 30 additional refills Last Office Visit: 08/14/2018 Next Scheduled Office Visit: 10/04/2019 Recommended F/U Date by provider: 08/28/2018 Recommended F/U Reason: BP Control Taken By: Delia Mae MA. ([facility]) CISE EQUIPMENT REPAIR TECHNICIAN CISE EQUIPMENT REPAIR TECHNICIAN documented in this encounter Plan of Treatment Not on file documented as of this encounter Visit Diagnoses Diagnosis Insomnia, unspecified type documented in this encounter Additional Health Concerns Infection Onset Date Last Indicated Resolved Time COVID-19 Under Investigation 12/13/2021 12/13/2021 12/14/2021 5:47 AM CDT documented as of this encounter Care Teams Brake Liner Relationship Specialty Start Date End Date Kaila Hopper APRN-LOAN PCP - General 05/29/18 documented as of this encounter
--- OUTSIDE RECORDS SUMMARY | 2025-06-06 16:02 | XMS_ITS | Encounter Summary ---
Author Organization [facility] Health Address [address] [place] [address] Care Team Providers Care Mail Processing Equipment Mechanic Name Role Phone Kaila Hopper Primary Care Provider [phone] Reason for Visit * Reason Onset Date Comments MEDICATION REFILL 06/08/2020 Encounter Details Date Type Department Care Team (Late st Contact Info) Description 06/08/2020 Refill [facility] Medicine [address] [facility] [address] [place] [address] Kaila Hopper APRN-CNP [address] [phone] MEDICATION REFILL Social History Tobacco Use Types [...] * Telephone Encounter - Kimberly Ocampo - 06/09/2020 1:44 PM CST Staci Rich Requested Prescriptions Pending Prescriptions Disp Refills ??? Artificial Saliva (BIOTENE DRY MOUTH MOISTURIZING) SOLN 44.3 mL 3 Sig: Swish and spit 10 mL 3 times daily as needed ??? busPIRone (BUSPAR) 10 MG tablet 60 tablet 0 Sig: Take 1 tablet by mouth 2 times daily Allergies Allergen Reactions ??? Zoloft [Sertraline] Other Makes pt sleepy Last Refill:10/04/2019 Qty Dispense:44,60 # of Refills:3,0 Last OV:04/24/2020 Next OV:none ING TECHNICIAN documented in this encounter Plan of Treatment Not on file documented as of this encounter Visit Diagnoses Diagnosis Dry mouth Disturbance of salivary secretion Anxiety Anxiety state, unspecified documented in this encounter Additional Health Concerns Infection Onset Date Last Indicated Resolved Time COVID-19 Under Investigation 12/13/2021 12/13/2021 12/14/2021 5:47 AM CDT documented as of this encounter Care Teams Mail Processing Equipment Mechanic Relationship Specialty Start Date End Date Kaila Hopper APRN-LOAN PCP - General 05/29/18 documented as of this encounter
--- OUTSIDE RECORDS SUMMARY | 2025-06-06 16:04 | XMS_ITS | Patient Health Record ---
Author Organization [facility] Address [address] [facility] [address] [place] [address] Care Team Providers Care Helper/Driver Name Role Phone Edna Holguin Unavailable [phone] Reason For Referral No Information Medications Medication SIG (Take, Route, Frequency, Duration) Notes Start Date End Date Status Zoloft 100 MG Tablet Oral Active Metoprolol Tartrate 100 MG Tablet Oral Active TriNessa (28) 0.18/0.215/0.25 MG-35 MCG Tablet Oral Active Plan Of Treatment No Information
[2025-06-06 16:05] VITALS: PULSE 79; RESP 20; TEMP 36.8; O2SAT 100
--- NOTE | 2025-06-06 16:07 | ED_ITS ---
HPI - Skin/Abscess/Foreign Bdy General Chief complaint: Skin/Abscess/Foreign Body Stated complaint: infected fingernil Time Seen by Provider: 06/06/25 16:08 Source: patient Mode of arrival: ambulatory Limitations: no limitations History of Present Illness HPI narrative: 35-year-old female presents with erythema and swelling to left thumb for 2-3 days. Started after biting hangnail from thumb using teeth. Pain worse today. Reports drainage starting today. Afebrile. All systems reviewed and negative except as noted above. Related Data Home Medications ?Medication ?Instructions ?Recorded ?Confirmed ?Last Taken ?Type acyclovir 200 mg capsule 200 mg DIRECTED 08/26/19 06/11/24 Unknown History amitriptyline 25 mg tablet 25 mg PO BID 08/26/1906/11 Unknown History etonogestrel 68 mg subdermal 1 implant subdermal ONCE 08/26/19 06/11/24 Unknown History implant (Nexplanon) metoprolol tartrate 100 mg tablet 100 mg PO Q12H 08/2606/11/24 Unknown History buspirone 10 mg tablet 10 mg DIRECTED 06/11/24 1 08/11/23 Unknown History ergocalciferol (vitamin D2) 1,250 06/06/25 Unknown H istory mcg (50,000 unit) capsule Allergies Allergy/AdvReac Type Severity Reaction Status Date / Time aripiprazole Allergy Unknown Unknown Verified 06/06/25 16:06 sertraline Allergy Unknown Unknown [facility] 06/06/25 [facility] Family History Family History Father Hypertension Family history of lymphoma Mother Hypertension Sibling Patient's brother is in good health Social History Social History Smoking status: Current every day smoker Second hand tobacco smoke exposure: Yes Smoking end date: 08/04/15 Alcohol intake: current Substance use type: marijuana Comments At time of signature, agree with nursing past medical, surgical, social and family history. There is no relevant family history pertinent to the presenting complaint. Exam Narrative: GENERAL: This is a well-nourished, well-developed patient, in no apparent distress. HEAD: normocephalic, atraumatic. EYES: PERRL. Sclera clear/white. Vision is grossly intact. EARS: External ears normal NOSE: External nose normal NECK: Neck supple, non-tender without lymphadenopathy, masses or thyromegaly. CARDIOVASCULAR: Regular rate and rhythm without murmurs, gallops, or rubs. RESPIRATORY: Clear to auscultation. Breath sounds equal bilaterally. No wheezes, rales, or rhonchi. SKIN: warm, Dry, intact with no suspicious lesions or rash, good texture and tu rgor. Erythema and swelling to lateral aspect of the cuticle of left thumb, tender on palpation. No fluctuance. Scant drainage noted. NEURO: awake, alert, and oriented to person, place and time. There were no obvious focal neurologic abnormalities. EXTREMITIES: No joint tenderness, effusion, or edema noted. Course Course Level of Care: Express Care Visit Vital Signs Vital signs: Vital Signs Temperature 36.8 C 06/06/25 16:05 Pulse Rate 79 06/06/25 16:05 Respiratory Rate 20 06/06/25 16:05 Pulse Oximetry 100 06/06/25 16:05 Oxygen Delivery Room Air 06/06/25 16:05 Temperature 36.8 C 06/06/25 16:05 Pulse Rate 79 06/06/25 16:05 Respiratory Rate 20 06/06/25 16:05 Pulse Oximetry 100 06/06/25 16:05 Oxygen Delivery Room Air 06/06/25 16:05 Reviewed MDM - Skin/Abscess/Foreign Bdy MDM Narrative Medical decision making narrative: will treat paronychia of left thumb with Augmentin, Bactroban ointment. Patient agrees with plan of care. Range of motion and distal neurovascularly intact. Differential Diagnosis Differential diagnosis: Likely abscess of skin or subcutaneous tissue, cellulitis, insect bites, impetigo and other ( Paronychia) Discharge Plan Discharge Clinical Impression: Acute paronychia of left thumb Patient Disposition: Home Condition: Stable Instructions: Antibiotic Form, Paronychia (ED) Additional Instructions: Take antibiotic as prescribed until gone. Apply antibiotic ointment 2 to 3 times a day. Wash well with soap and water. See your doctor if not improving. Patient Language: Mongolian Prescriptions: New mupirocin 2 % ointment 1 applic topical BID 7 Days Qty: 15 0RF amoxicillin-pot clavulanate 875-125 mg tablet 1 tablet PO Q12H 7 Days Qty: 14 0RF No Action metoprolol tartrate 100 mg Tablet 100 mg PO Q12H acyclovir 200 mg Capsule 200 mg DIRECTED Rx Instructions: 200 mg orally take one tablet five times a day for five days amitriptyline 25 mg Tablet 25 mg PO BID Nexplanon 68 mg Implant 1 implant SUBDERMAL ONCE buspirone 10 mg tablet 10 mg DIRECTED ergocalciferol (vitamin D2) 1,250 mcg (50,000 unit) capsule Follow-up/Referrals: Brian,JOSE Salazar [Primary Care Provider, Unknown] Time of Disposition: 16:14
[2025-06-06 16:12] VITALS: BP 120/86
== END 2025-06-06 16:16 | disposition home or self-care (01) ==
PROVIDERS: Emergency Provider Nurse Practitioner Family; PCP Nurse Practitioner
DX: L03.012 Cellulitis of left finger (principal); Z87.891 Personal history of nicotine dependence
CPT/HCPCS: 99213; G0463